=== PATIENT | female | born 1990 | race Hispanic/Latino ===

== ENCOUNTER 2023-05-08 18:26 | Emergency (ER) | payer OTHER, SELFPAY ==
[2023-05-08 18:30] VITALS: BP 133/72; PULSE 70; RESP 18; TEMP 36.9; O2SAT 98; BMI 34.5
[2023-05-08 19:07] LABS: Add Manual Diff / Slide Review NO; Basophils Absolute Auto 0 /uL (0-100); Basophils Percent Auto 0.9 % (0-2); Eosinophils Absolute Auto 200 /uL (0-450); Eosinophils Percent Auto 4.3 % (2-4); Hemoglobin 11.4 g/dL (12.0-16.0); Lymphocytes Absolute Auto 1800 /uL (1100-4500); Lymphocytes Percent Auto 34.4 % (25-40); Mean Corpuscular HGB Conc 34.6 % (30-36); Mean Corpuscular Hemoglobin 28.5 PG (26-34); Mean Corpuscular Volume 82.5 fL (80-100); Monocytes Absolute Auto 400 /uL (0-900); Neutrophils Absolute Auto 2700 /uL (1500-7000); Neutrophils Percent Auto 52.4 % (50-75); Platelet Count 289 X10^3/uL (150-400); Red Blood Cell Count 4.01 X10^6/uL (4.0-5.2); Red Cell Distribution Width 13.6 % (11.6-14.8); White Blood Cell Count 5.2 X10^3/uL (4.5-11.0)
[2023-05-08 19:16] LABS: Bacteria Urine None Seen; RBC Urine 0-1/HPF (0-5/HPF); Squamous Epithelial Cell Urine 0-1 /HPF (0-5/HPF); WBC Urine 0-1/HPF (0-5/HPF)
[2023-05-08 19:17] LABS: Amorphous Sediment Urine 1+; Culture Indicated Urine Cult Not Indicated
[2023-05-08 19:18] LABS: BUN Creatinine Ratio 14.3 (6-22); Blood Urea Nitrogen 13 mg/dL (7-17); Calcium 9.5 mg/dL (8.4-10.2); Carbon Dioxide 26 mmol/L (22-32); Chloride 103 mmol/L (98-107); Estimated Glomerular Filt Rate > 60 mL/min (>60); Glucose 92 mg/dL (70-100); HEMOLYSIS < 15 (0-50); Potassium 3.9 mmol/L (3.4-5.1); Sodium 139 mmol/L (137-145)
--- NOTE | 2023-05-08 19:27 | DI.US.S_ITS ---
PROCEDURE: US PELVIC COMPLETE INDICATIONS: DUB X 6 WEEKS TECHNIQUE: Real-time scanning was performed of the pelvic organs, with image documentation. Additional endovaginal scanning was necessary due to incomplete visualization of the adnexal and endometrial structures by transabdominal scanning. COMPARISON: None. FINDINGS: Uterus: Uterus is anteverted and normal in size at 8.4 x 4.1 x 4.5 cm. The myometrium is homogeneous. The endometrium measures 2.0 mm combined thickness. Ovaries: The right ovary measures 1.7 x 2.4 x 1.9 cm, with a calculated ovarian volume of 4.0 cc. The left ovary measures 3.4 x 2.4 x 2.2 cm, with a calculated ovarian volume of 9.6 cc. The ovaries have a normal sonographic appearance. There are likely greater than 12 follicles within the bilateral ovaries. No adnexal masses are seen. Other: No pathologic free abdominal or pelvic fluid. IMPRESSION: Likely greater than 12 subcentimeter follicles in the bilateral ovaries. Findings meet the [place] definition of polycystic ovaries. In the absence of ovulatory dysfunction or clinically/biochemically diagnosed hyperandrogenism, findings are non specific and do not indicate the presence of polycystic ovarian syndrome. We strive to produce accurate, complete, and clear reports of imaging services. To assist us in improving patient care, this report was composed using standard report templates and voice recognition software. Therefore, it may contain abnormal punctuation, insertions and/or omissions. Occasional wrong-word or sound-alike substitutions may occur. Though we review the report and make efforts to correct it, we do recommend that the report be read carefully in proper context to recognize any text inaccuracies. Dictated by: Liudmila Puga M.D. on 05/08/2023 at 20:25 Approved by: Liudmila Puga M.D. on 05/08/2023 at 20:27
--- NOTE | 2023-05-08 19:27 | ED.GENADULT ---
HPI - General Adult General Chief complaint: Vaginal Bleeding Stated complaint: ABD pain and bleeding X 6 mos Time Seen by Provider: 05/08/23 19:20 Source: patient Mode of arrival: Ambulatory History of Present Illness HPI narrative: Patient is a 33-year-old female. She states she has a diagnosis of PCOS. He is not currently on control. She states that she is actually trying to become . She is here for evaluation of several weeks of vaginal bleeding that has actually worsened over the past couple days. She is also having left adnexal pain. She was seen at an outside facility approximately 1 week ago where she had an ultrasound performed and was discharged home. She has an appointment with a strategic alliances manager doctor in 1 week from now. Related Data Allergies Allergy/AdvReac Type Severity Reaction Status Date / Time No Known Drug Allergies Allergy Verified 05/08/23 18:30 Review of Systems Constitutional Constitutional: Reports system reviewed and no additional complaints, except as documented Gastrointestinal Gastrointestinal: Reports system reviewed and no additional complaints, except as documented Genitourinary Genitourinary: Reports system reviewed and no additional complaints, except as documented Integumentary/Breasts Skin/Breast: Reports system reviewed and no additional complaints, except as documented Patient History Social History Smoking Status: Never smoker Smoking Status: Never smoker alcohol intake frequency: holidays/special occasions only Substance Use Type: does not use Exam Initial Vital Signs Initial Vital Signs: Vital Signs Temperature 98.4 F 05/08/23 18:30 Pulse Rate 70 05/08/23 18:30 Respiratory Rate 18 05/08/23 18:30 Blood Pressure 133/72 05/08/23 18:30 Pulse Oximetry 98 05/08/23 18:30 Oxygen Delivery Method Room Air 05/08/23 18:30 HENCO Head: normal to inspection Resp Effort & Inspection: normal respiratory effort Cardio Rate: regular rate GI Inspection: normal to inspection Palpation: soft, No firm, No guarding and tender (Left adnexa) Skin General: no rashes or lesions noted Neuro General: patient alert, patient awake and moves all extremities Extrem General: normal to inspection and capillary refill normal Course Orders Ordered: ED Orders 05/08/23 18:40 Urine Microscopic Stat 05/08/23 18:57 Basic Metabolic Panel Stat Complete Blood Count AUTO DIFF Stat Type and Screen Stat 05/08/23 19:27 US pelvic complete Stat Discontinued Medications Ketorolac Tromethamine (Ketorolac 30 Mg/Ml Vial) 30 mg IV NOW ONE Stop: 05/08/23 19:28 Last Admin: 05/08/23 19:39 Dose: 30 mg Documented By: LEE ANN Vital Signs Vital signs: Vital Signs - 8 hr 05/08/23 18:30 05/08/23 19:43 05/08/23 19:43 Temperature 98.4 F Pulse Rate 70 62 Respiratory Rate 18 Blood Pressure 133/72 122/73 Pulse Oximetry 98 98 Oxygen Delivery Method Room Air Room Air 05/08/23 20:00 05/08/23 20:00 05/08/23 20:30 Temperature Pulse Rate 63 63 Respiratory Rate Blood Pressure 123/72 Pulse Oximetry 98 99 Oxygen Delivery Method Room Air Medical Decision Making Medical Records Medical records reviewed: Yes I reviewed the patient's medical records. Lab Data Lab results reviewed: Yes I reviewed the patient's lab results. 05/08/23 18:57 05/08/23 18:57 Labs: Lab Results 05/08/23 05/08/23 05/08/23 Range/Units 18:40 18:57 18:57 WBC 5.2 (4.5-11.0) X10^3/uL RBC 4.01 (4.0-5.2) X10^6/uL Hgb 11.4 L (12.0-16.0) g/dL Hct 33.0 L (36-46) % MCV 82.5 (80-100) fL MCH 28.5 (26-34) PG MCHC 34.6 (30-36) % RDW 13.6 (11.6-14.8) % Plt Count 289 (150-400) X10^3/uL Neut % (Auto) 52.4 (50-75) % Lymph % (Auto) 34.4 (25-40) % [place] % (Auto) 8.0 (3-14) % Eos % (Auto) 4.3 H (2-4) % Baso % (Auto) 0.9 (0-2) % Neut # (Auto) 2700 (6785-7349) /uL Lymph # (Auto) 1800 (2925-4587) /uL Crawford # (Auto) 400 (0-900) /uL Eos # (Auto) 200 (0-450) /uL Baso # (Auto) 0 (0-100) /uL Sodium 139 (137-145) mmol/L Potassium 3.9 (3.4-5.1) mmol/L Chloride 103 (98-107) mmol/L Carbon Dioxide 26 (22-32) mmol/L BUN 13 (7-17) mg/dL Creatinine 0.91 (0.52-1.04) mg/dL Estimated GFR > 60 (>60) mL/min BUN/Creatinine Ratio 14.3 (6-22) Glucose 92 (70-100) mg/dL Calcium 9.5 (8.4-10.2) mg/dL Urine RBC 0-1/hpf (0-5/HPF) Urine WBC 0-1/hpf (0-5/HPF) Ur Squamous Epith Cells 0-1 /hpf (0-5/HPF) Amorphous Sediment 1+ Urine Bacteria None seen (None) Ur Culture Indicated? Cult not indicated Blood Type Antibody Screen 05/08/23 Range/Units 18:57 WBC (4.5-11.0) X10^3/uL RBC (4.0-5.2) X10^6/uL Hgb (12.0-16.0) g/dL Hct (36-46) % MCV (80-100) fL MCH (26-34) PG MCHC (30-36) % RDW (11.6-14.8) % Plt Count (150-400) X10^3/uL Neut % (Auto) (50-75) % Lymph % (Auto) (25-40) % Crawford % (Auto) (3-14) % Eos % (Auto) (2-4) % Baso % (Auto) (0-2) % Neut # (Auto) (3657-8080) /uL Lymph # (Auto) (5931-1760) /uL Crawford # (Auto) (0-900) /uL Eos # (Auto) (0-450) /uL Baso # (Auto) (0-100) /uL Sodium (137-145) mmol/L Potassium (3.4-5.1) mmol/L Chloride (98-107) mmol/L Carbon Dioxide (22-32) mmol/L BUN (7-17) mg/dL Creatinine (0.52-1.04) mg/dL Estimated GFR (>60) mL/min BUN/Creatinine Ratio (6-22) Glucose (70-100) mg/dL Calcium (8.4-10.2) mg/dL Urine RBC (0-5/HPF) Urine WBC (0-5/HPF) Ur Squamous Epith Cells (0-5/HPF) Amorphous Sediment Urine Bacteria (None) Ur Culture Indicated? Blood Type O Negative Antibody Screen Negative Point of Care Testing Test Results Negative Urine Dip Bedside Urine Glucose Negative Bedside Urine Bilirubin - Negative Bedside Urine Ketone - Negative Urine Specific [place] 1.020 Bedside Urine Occult Blood +++ Bedside Urine pH 6.0 Bedside Urine Protein - Negative Bedside Urine Urobilinogen - Negative Bedside Urine Nitrite - Negative Bedside Urine Leukocytes - Negative Esterase Point of care testing: Point of Care Testing Test Results Negative Urine Dip Bedside Urine Glucose Negative Bedside Urine Bilirubin - Negative Bedside Urine Ketone - Negative Urine Specific [place] 1.020 Bedside Urine Occult Blood +++ Bedside Urine pH 6.0 Bedside Urine Protein - Negative Bedside Urine Urobilinogen - Negative Bedside Urine Nitrite - Negative Bedside Urine Leukocytes - Negative Esterase Imaging Data US - MACHINE CHOCOLATE MOLDER: Radiologist's Impression: ROCEDURE:? US PELVIC COMPLETE ? INDICATIONS:? DUB X 6 WEEKS ? TECHNIQUE:? Real-time scanning was performed of the pelvic organs, with image documentation.? Additional endovaginal scanning was necessary due to incomplete visualization of the adnexal and endometrial structures by transabdominal scanning.? ? COMPARISON:? None. ? FINDINGS:? ?? Uterus:? Uterus is anteverted and normal in size at 8.4 x 4.1 x 4.5 cm. The myometrium is homogeneous. ? The endometrium measures 2.0 mm combined thickness. ? ? Ovaries:? The right ovary measures 1.7 x 2.4 x 1.9 cm, with a calculated ovarian volume of 4.0 cc. The left ovary measures 3.4 x 2.4 x 2.2 cm, with a calculated ovarian volume of 9.6 cc. The ovaries have a normal sonographic appearance.? There are likely greater than 12 follicles within the bilateral ovaries.? No adnexal masses are seen. ? Other:? No pathologic free abdominal or pelvic fluid. ? ? IMPRESSION:? Likely greater than 12 subcentimeter follicles in the bilateral ovaries.? Findings meet the [place] definition of polycystic ovaries.? In the absence of ovulatory dysfunction or clinically/biochemically diagnosed hyperandrogenism, findings are non specific and do not indicate the presence of polycystic ovarian syndrome. MDM Narrative Medical decision making narrative: test is negative. Urinalysis shows no signs of infection. Ultrasound today is unremarkable. Patient is only slightly anemic and there was no indication of any blood transfusion. She is not hypoxic. Not tachypneic. Not hypotensive. We discussed potentially starting her on control for hormone regulation to try to help stop the bleeding versus waiting until she sees her strategic alliances manager doctor in 1 week from now. After this discussion she would like to wait to see the strategic alliances manager doctor. Patient can be safely discharged home. She was given return precautions follow-up instructions. She expressed understanding and agreement. Discharge Plan Departure Patient Disposition: Home Clinical Impression: Abnormal uterine bleeding Instructions: DI for Vaginal Bleeding Activity Restrictions/Additional Instructions: I do recommend that you keep your appointment that you have scheduled with a strategic alliances manager doctor later this month. Contact your primary doctor for follow-up. Return to the emergency department for new symptoms. Stand Alone Forms: Patient Portal/API
[2023-05-08] MEDS: KETOROLAC 30 MG/ML VIAL IV (19:39)
[2023-05-08 19:43] VITALS: BP 122/73; PULSE 62; O2SAT 98
[2023-05-08 20:00] VITALS: BP 123/72; PULSE 63; O2SAT 98
[2023-05-08 20:30] VITALS: PULSE 63; O2SAT 99
== END 2023-05-08 20:37 | disposition home or self-care (01) ==
PROVIDERS: Emergency Provider Emergency Medicine
DX: N93.9 Abnormal uterine and vaginal bleeding, unspecified (principal); R10.9 Unspecified abdominal pain
CPT/HCPCS: 36415; 76830; 76856; 80048; 81003; 81015; 81025; 85025; 86850; 86900; 86901; 93975; 96374; 99284; J1885

== ENCOUNTER → 2024-02-06 06:46 | Outpatient (CLI) | payer OTHER, SELFPAY ==
--- NOTE | 2024-02-06 06:48 | DI.US.S_ITS ---
PROCEDURE: US THYROID INDICATIONS: Nontoxic single thyroid nodule TECHNIQUE: Real-time scanning was performed of the thyroid gland, with image documentation. COMPARISON: None. FINDINGS: Thyroid: Right lobe measures 5.2 x 1.0 x 1.9 cm. Left lobe measures 5.0 x 1.2 x 1.8 cm. Isthmus is 3 cm thick. Echotexture is homogeneous. IMPRESSION: No visualized focal nodule. Dictated by: Sommer Blackwell M.D. on 02/06/2024 at 11:16 Approved by: Sommer Blackwell M.D. on 02/06/2024 at 11:17
== END ==
LOC: US 06:48
PROVIDERS: Referring Provider Student in an Organized Health Care Education/Training Program; Visit Provider Student in an Organized Health Care Education/Training Program
DX: E04.1 Nontoxic single thyroid nodule (principal)
CPT/HCPCS: 76536

== ENCOUNTER → 2025-01-14 07:48 | Outpatient (CLI) | payer OTHER, SELFPAY ==
--- NOTE | 2025-01-14 07:49 | DI.US.S_ITS ---
PROCEDURE: US PELVIC COMPLETE INDICATIONS: bleeding with intercourse TECHNIQUE: Real-time scanning was performed of the pelvic organs, with image documentation. Additional endovaginal scanning was necessary due to incomplete visualization of the adnexal and endometrial structures by transabdominal scanning. COMPARISON: Located Within [facility], [place], US PELVIC COMPLETE, 05/08/2023, 19:55. FINDINGS: Uterus: Uterus is anteverted and normal in size at 7.5 x 4.4 x 3.8 cm. The myometrium is homogeneous. The endometrium measures or mm combined thickness. No endometrial mass or fluid. Nabothian cysts are noted in cervical canal. Slightly increased vascularity along endocervical canal is also seen. Ovaries: The right ovary measures 2.9 x 1.9 x 1.8 cm. The left ovary measures 3.4 x 3.1 x 1.7 cm. Small corpus luteum is seen in left ovary measures 1.2 x 1.2 x 0.9 cm in size. The ovaries have a normal sonographic appearance. Greater than 12 follicles can be seen in each ovary. No adnexal masses are seen. Other: No pathologic free abdominal or pelvic fluid. IMPRESSION: 1. No endometrial mass or fluid. No discrete uterine fibroids. Nonspecific mildly increased vascularity within cervical canal. Nabothian cysts are also seen in cervical canal. 2. Possible corpus luteum in left ovary. No solid appearing ovarian lesion. No evidence of ovarian torsion. 3. Greater than 12 follicles are seen in each ovary. Findings meet the [place] definition of polycystic ovaries. In the absence of ovulatory dysfunction or clinically/biochemically diagnosed hyperandrogenism, findings are non specific and do not indicate the presence of polycystic ovarian syndrome. We strive to produce accurate, complete, and clear reports of imaging services. To assist us in improving patient care, this report was composed using standard report templates and voice recognition software. Therefore, it may contain abnormal punctuation, insertions and/or omissions. Occasional wrong-word or sound-alike substitutions may occur. Though we review the report and make efforts to correct it, we do recommend that the report be read carefully in proper context to recognize any text inaccuracies. Dictated by: Henry Paniagua M.D. on 01/14/2025 at 19:42 Approved by: Henry Paniagua M.D. on 01/14/2025 at 19:46
== END ==
PROVIDERS: PCP Nurse Practitioner Family; Referring Provider Nurse Practitioner Family; Visit Provider Nurse Practitioner Family
DX: N93.0 Postcoital and contact bleeding (principal); N88.8 Other specified noninflammatory disorders of cervix uteri
CPT/HCPCS: 76830; 76856